=== PATIENT | male | born 1965 | race Caucasian/White ===

== ENCOUNTER 2019-10-27 08:17 | Day surgery (SDC) | payer OTHER ==
[~2019-10-27 08:17] MED LIST: ALBU90OI INH; Aspir 8181 MG PO; CARAFATE1 GM PO; GABA100 PO; LOSARTAN POTAS100 MG PO; Lasix20 MG PO; Lipitor80 MG PO; NIFEDIPINE PO; NITR.4SL SL; PANT40 PO; PLAVIX75 MG PO; TIOT18 INH; TOPROL XL50 M1 PO
--- NOTE | 2019-10-28 11:29 | NUR ---
10/28/19 [id number] Yuliana Mckeon LATE ENTRY PATIENTS WAS CANCELLED BECAUSE HE DID NOT TAKE IS COLON PREP.
== END 2019-10-27 10:30 | disposition home or self-care (01) ==
LOC: ORSCSDS 08:17
DX: K62.5 Hemorrhage of anus and rectum (principal)
CPT/HCPCS: J2704; J7120